=== PATIENT | male | born 1975 | race Caucasian/White ===

== ENCOUNTER 2017-01-15 18:39 | Observation (INO) | payer OTHER ==
[~2017-01-15] VITALS: Ht 175.3 cm; Wt 99.8 kg
--- NOTE | ~2017-01-15 | EKG ---
[address] [place] [address] ELECTROCARDIOGRAM REPORT Name: MARILYNN BRICEÑO Room #: 206-P [facility] IN M.R.#: [id number] Admission: 01/15/17 Attend Phys: Karthik Jones DO Discharge: 01/16/17 Date of : 71 Report #: [id number] THIS REPORT FOR: //name// [facility] ED Test Date: 2017-01-15 Test Time: 18:55:41 Pat Name: MARILYNN BRICEÑO Department: Room: 206 Gender: M Male Infertility Specialist: Felix KEARNEY : 1975 Requested By: Fernando Foster Order Number: [id number] MD: Branden Hernandez Measurements Intervals Rindge Rate: 72 P: 12 CA: 151 QRS: 52 QRSD: 90 T: 43 QT: 397 QTc: 435 Interpretive Statements Sinus rhythm ST elevation suggests acute pericarditis, repolarization, or injury No previous ECG available for comparison Electronically Signed On 01-17-2017 7:19:48 CDT by Branden Hernandez [email or web address] <ELECTRONICALLY SIGNED> By: Branden Hernandez MD, [facility] 01/17/17 0719 [id number] 54 Branden Hernandez MD, FAC /EPI
[~2017-01-15 18:39] MED LIST: NOHOMEMEDICATIONS; NORCO 5-325 TA1 EACH PO
[2017-01-15 18:40] VITALS: BP 131/80
[2017-01-15 19:10] LABS: ABSOLUTE NEUTROPHILS 8.9 thou/uL (1.4-8.2); BASOPHILS 1.1 % (0.0-2.0); EOSINOPHILS 1.2 % (0.0-3.0); HEMATOCRIT 45.4 % (42.0-52.0); HEMOGLOBIN 15.6 gm/dL (14.0-18.0); LYMPHOCYTES 28.8 % (24.0-44.0); MCH 31.1 pg (26.0-34.0); MCHC 34.5 g/dL (28.0-37.0); MCV 90.3 fL (80.0-100.0); MONOCYTES 3.2 % (1.0-8.0); PLATELET COUNT 258 thou/uL (150-400); POLYS 65.7 % (36.0-66.0); RBC 5.03 mil/uL (4.50-6.00); RDW 13.9 % (10.5-14.5); WBC 13.5 thou/uL (4.0-11.0)
[2017-01-15 19:11] LABS: MANUAL DIFF NO
[2017-01-15 19:19] LABS: ANION GAP 13 mmol/L (7-16); BUN 10 mg/dL (7-18); CALCIUM 8.5 mg/dL (8.5-10.1); CHLORIDE 102 mmol/L (98-107); CO2 22 mmol/L (21-32); CREATININE 0.8 mg/dL (0.7-1.3); GLUCOSE 126 mg/dL (74-106); POTASSIUM 3.7 mmol/L (3.5-5.1); SODIUM 137 mmol/L (136-145)
[2017-01-15 19:28] LABS: ALBUMIN 3.9 g/dL (3.4-5.0); ALKALINE PHOSPHATASE 79 U/L (46-116); MAGNESIUM 1.9 mg/dL (1.8-2.4); SGOT 35 U/L (15-37); SGPT 49 U/L (30-65); TOTAL BILIRUBIN 0.2 mg/dL (<0.1-1.0); TOTAL PROTEIN 7.4 g/dL (6.4-8.2); TROPONIN-I < 0.04 ng/mL (<0.04-0.07)
[2017-01-16 00:41] LABS: AMP/METHAMP Negative (Negative); BARBITURATES Negative (Negative); BENZODIAZEPINES Negative (Negative); COCAINE Negative (Negative); METHADONE Negative (Negative); OPIATES Negative (Negative); PCP Negative (Negative); THC Negative (Negative)
[2017-01-16 05:51] LABS: HEMATOCRIT 42.4 % (42.0-52.0); HEMOGLOBIN 14.5 gm/dL (14.0-18.0); MCH 30.8 pg (26.0-34.0); MCHC 34.2 g/dL (28.0-37.0); RBC 4.71 mil/uL (4.50-6.00); RDW 13.9 % (10.5-14.5); WBC 13.3 thou/uL (4.0-11.0)
[2017-01-16 06:09] LABS: CALCIUM 7.8 mg/dL (8.5-10.1); CREATININE 0.7 mg/dL (0.7-1.3); POTASSIUM 3.9 mmol/L (3.5-5.1); TOTAL BILIRUBIN 0.3 mg/dL (<0.1-1.0); TOTAL PROTEIN 6.4 g/dL (6.4-8.2)
[2017-01-16 06:13] LABS: ALBUMIN 3.3 g/dL (3.4-5.0)
[2017-01-16 06:30] LABS: FOLIC ACID 5.9 ng/mL (8.6-58.9)
[2017-01-16 07:16] VITALS: BP 109/72
[2017-01-16 07:30] VITALS: BP 112/75
[2017-01-16 20:06] LABS: FREE T4 0.99 ng/dL (0.82-1.77)
== END 2017-01-16 10:40 | disposition left against medical advice (07) ==
LOC: ER 18:39 → 2N 21:52 → EROBS 21:52 → 2N 21:52
PROVIDERS: Nurse Practitioner Family; Physician Assistant
DX: K52.9 Noninfective gastroenteritis and colitis, unspecified (principal); F10.129 Alcohol abuse with intoxication, unspecified; K92.0 Hematemesis; R10.9 Unspecified abdominal pain; R11.2 Nausea with vomiting, unspecified; D72.829 Elevated white blood cell count, unspecified; Z72.0 Tobacco use; Z79.899 Other long term (current) drug therapy